=== PATIENT | female | born 1965 | race Asian ===

== ENCOUNTER 2019-02-23 21:37 | Emergency (ER) | payer SELFPAY ==
[~2019-02-23] VITALS: Ht 157.5 cm; Wt 116.0 kg
[~2019-02-23 21:37] MED LIST: IBUP-1542 PO
[2019-02-23 21:42] VITALS: Ht 157.5 cm; Wt 116.0 kg
[2019-02-24] MEDS ORDERED: SOD CHLORIDE 0.9% 100 ML ONE (00:20)
[2019-02-24] MEDS ORDERED: IOHEXOL 300MG/ML 150 ML BTL ONE (00:20)
[2019-02-24] MEDS ORDERED: KETOROLAC 15 MG INJ IV STA (01:41)
[2019-02-24] MEDS ORDERED: SOD CHLORIDE 0.9% 1,000 ML IV ONE (02:00)
[2019-02-24] MEDS ORDERED: ACETAMINOPHEN 325 MG TAB PO ONE (02:00)
[2019-02-24 03:18] VITALS: BP 146/82; PULSE 88; RESP 16
== END 2019-02-24 03:19 | disposition home or self-care (01) ==
LOC: E/R 21:37
DX: S20.212A Contusion of left front wall of thorax, initial encounter (principal); S30.1XXA Contusion of abdominal wall, initial encounter; S09.90XA Unspecified injury of head, initial encounter; S60.222A Contusion of left hand, initial encounter; S60.211A Contusion of right wrist, initial encounter; E04.1 Nontoxic single thyroid nodule; I10 Essential (primary) hypertension; K57.30 Diverticulosis of large intestine without perforation or abscess without bleeding; V43.52XA Car driver injured in collision with other type car in traffic accident, initial encounter
CPT/HCPCS: 70450; 71260; 72125; 73110; 73130; 74177; 80053; 80307; 83690; 85025; 85610; 85730; 86850; 86900; 86901; 96374; 99285; J1885; J7030; Q9967